=== PATIENT | male | born 1995 | race Caucasian/White ===

== ENCOUNTER 2024-06-07 02:48 | Day surgery (SDC) | payer OTHER ==
[~2024-06-07] VITALS: Ht 175.3 cm; Wt 95.5 kg
[2024-06-07] VITALS (224 sets, daily range): BP systolic 46–141; BP diastolic 24–86
--- NOTE | 2024-06-07 07:00 | NUR ---
Patient arrived to the ANR suite, identification and demographics confirmed. Patient to room 9, AAO, ambulatory, vitals obtained, ID/allergy/fall bands placed, changed into hospital gown, CHARI hose, and non-slip socks. Procedure and timeline explained for treatment and discharge. All questions answered and the patient presents no concerns at this time.
[2024-06-07] MEDS ORDERED: ALBUTEROL SULFATE 2.5 MG VIAL IN PRN (07:30)
[2024-06-07] MEDS ORDERED: CYANOCOBALAMIN 500 MCG/TAB ( B12) PO PRN (07:30)
[2024-06-07] MEDS ORDERED: PANTOPRAZOLE SODIUM Sesquihydr 40 MG/TAB PO PRN (07:30)
[2024-06-07] MEDS ORDERED: cloNIDine HCL 0.1 MG/TAB PO PRN (07:30)
[2024-06-07] MEDS ORDERED: diazePAM 5 MG/TAB PO PRN ×2 (07:30→08:30)
[2024-06-07] MEDS ORDERED: LACTATED RINGER'S 1,000 ML IV PRN ×3 (07:30→19:00)
[2024-06-07] MEDS ORDERED: SCOPOLAMINE 1.5 MG DIS TD PRN (07:30)
[2024-06-07] MEDS ORDERED: FAMOTIDINE 20 MG/TAB PO PRN (07:30)
--- NOTE | 2024-06-07 07:31 | NUR ---
Dr. Mauricio telephoned with patient intake information including usage, dose, last dose/time taken and initial vital signs. Patient history and allergies reviewed with MD. Orders received for 10 mg PO Valium and 0.2 mg PO Clonidine now. Will reassess per protocol in 1.5 hours and update MD with assessment and vitals.
[2024-06-07] MEDS ORDERED: ASCORBIC ACID 4,000 MG in SODIUM CHLORIDE 0.9% 1,000 ML IV SCH (08:00)
[2024-06-07] MEDS ORDERED: STERILE WATER FOR IRRIGATION 1,000 ML BTL IR PRN (08:35)
[2024-06-07] MEDS ORDERED: diazePAM 5 MG/TAB VT PRN (08:35)
[2024-06-07] MEDS ORDERED: cloNIDine HYDROCHLORIDE 100 MCG/ML 10 ML INJ IV PRN (08:35)
[2024-06-07] MEDS ORDERED: NALTREXONE HCL 50 MG/TAB VT PRN (08:35)
[2024-06-07] MEDS ORDERED: DiphenhydrAMINE HCL 50 MG/ML SDV IV PRN (08:35)
[2024-06-07] MEDS ORDERED: OCTREOTIDE ACETATE 100 MCG/VIAL SDV SC PRN (08:35)
[2024-06-07] MEDS ORDERED: ONDANSETRON HCl 4 MG/2 ML SDV IV PRN ×3 (08:35→19:00)
[2024-06-07] MEDS ORDERED: ROCURONIUM BROMIDE 10 MG/ML 5ML VIAL IV PRN (08:35)
[2024-06-07] MEDS ORDERED: THIAMINE HCL 100 MG/ML 2ML VIAL IV PRN (08:35)
[2024-06-07] MEDS ORDERED: LIDOCAINE HCL 1% (10MG/ML) 100 MG/10 ML MDV VT PRN ×2 (08:35)
[2024-06-07] MEDS ORDERED: MIDAZOLAM HCL 2 MG/2 ML VIAL IV PRN (08:35)
[2024-06-07] MEDS ORDERED: PROPOFOL 100 ML IV PRN (08:35)
[2024-06-07] MEDS ORDERED: DEXAMETHASONE SODIUM PHOSPHATE PF 10 MG/ML SDV IV PRN ×2 (08:35→19:00)
[2024-06-07] MEDS ORDERED: MAGNESIUM SULFATE HEPTAHYDRATE 100 ML IV PRN (08:35)
[2024-06-07] MEDS ORDERED: cloNIDine HCL 0.1 MG/TAB VT PRN (08:35)
[2024-06-07] MEDS ORDERED: SUCCINYLCHOLINE CHLORIDE 20 MG/ML 10ML VIAL IV PRN (08:35)
[2024-06-07] MEDS ORDERED: PROPOFOL 10 MG/ML 100ML VIAL IV PRN (08:35)
[2024-06-07] MEDS ORDERED: LIDOCAINE HCL 1% (10MG/ML) 100 MG/10 ML MDV IV PRN (08:35)
[2024-06-07 08:38] LABS: BASO% 0.5 % (0-3); EOS% 3.2 % (0-8); HEMATOCRIT 40.6 % (39.0-50.0); HEMOGLOBIN 14.3 g/dl (14.0-18.0); IMMATURE GRANULOCYTES 0.4 % (0.0-5.0); LYMPH% 19.1 % (15-41); MEAN CELL VOLUME 85.7 fL CALC (80.0-100.0); MEAN CORPUSCULAR HGB 30.2 pG CALC (26.0-32.0); MEAN CORPUSCULAR HGB CONC 35.2 g/dL CAL (32.0-36.0); MONO% 9.3 % (2-13); NEUT# 3.86 thou/uL (1.82-7.42); NEUT% 67.5 % (42-76); RED BLOOD COUNT 4.74 mill/uL (4.70-6.10); RED CELL DISTRI WIDTH 11.6 % (11.5-15.5)
[2024-06-07 09:02] LABS: ALBUMIN 4.6 g/dL (3.2-5.0); BILIRUBIN, TOTAL 0.7 mg/dL (0.2-1.3); POTASSIUM 4.4 mmol/l (3.5-5.1); TOTAL PROTEIN 7.2 g/dL (6.3-8.2)
--- NOTE | 2024-06-07 09:44 | NUR ---
Dr. Mauricio telephoned with reassessment and new vital signs. Reviewed initial Valium and Clonidine dose with MD. Orders received for 5 mg PO Valium now. Will reassess per protocol in 1.5 hours and update MD with assessment and vitals.
[2024-06-07] MEDS ORDERED: POTASSIUM CHLORIDE 10 MEQ/50 ML BAG IV PRN (09:50)
--- NOTE | 2024-06-07 10:20 | NUR ---
DR. RIVERS AT BEDSIDE TO ASSESS PT AND DISCUSS POC AND PROCEDURE.
--- NOTE | 2024-06-07 10:51 | NUR ---
Induction Note Patient to [facility]R procedure room. Time out performed at 1024. Patient placed on monitors, Judie hugger, bilateral wrist restraints applied for ET tube protection. Versed 5mg given IV push at 1028 Tourniquet applied to right arm Lidocaine 100mg given at 1046 IV push followed by Rocoronium 10mg at 1047 IV push and held for 90 seconds. Propofol bolus of 130mg given at 1049 IV push. Succinylcholine 100mg given IV push at 1050. Smooth intubation with 7.5 ETT. Positive CO2. Positive Auscultation for air exchange. ET tube secured with tube rayo 22 @ the lip by Dr. Mauricio. Patient placed on ventilator for spontaneous ventilation. Placed on Propofol IV drip at 1051. OG inserted. Positive air on auscultation. Positive gastric content. Stomach washed at this time.
--- NOTE | 2024-06-07 10:55 | NUR ---
OG close note Stomach washed at this time. Naltrexone 50 mg with Clonidine 0.2 mg via OG tube. OG will be clamped for 45 minutes.
--- NOTE | 2024-06-07 11:40 | NUR ---
OG open note OG open at this time. Gastric content draining into drainage bag. OG to drain for 45 minutes. Propofol will be titrated down based on patient.
--- NOTE | 2024-06-07 12:25 | NUR ---
OG close note Stomach washed at this time. Naltrexone 50 mg via OG tube. OG will be clamped for 45 minutes.
--- NOTE | 2024-06-07 13:55 | NUR ---
OG close note Stomach washed at this time. Naltrexone 50 mg with Clonidine 0.1 mg via OG tube. OG will be clamped for 45 minutes.
[2024-06-07] MEDS ORDERED: SODIUM CHLORIDE 0.9% 250 ML IV ONE (14:57)
[2024-06-07] MEDS ORDERED: PHENYLEPHRINE HCL 10 MG/ML VIAL ONE (14:57)
--- NOTE | 2024-06-07 15:25 | NUR ---
OG close note Stomach washed at this time. Naltrexone 25 mg via OG tube. OG will be clamped for 45 minutes.
--- NOTE | 2024-06-07 16:55 | NUR ---
OG close note Stomach washed at this time. Valium 10 mg with Clonidine 0.1 mg via OG tube. OG will be clamped for 20-30 minutes for closing dose.
--- NOTE | 2024-06-07 17:22 | NUR ---
Extubation note Closing medications given Benadryl 50mg IV push, Decadron 10mg IV push,Magnesium 4 grams IV, Zofran 8mg IV push, Octreotide 100mcg SC. Stomach washed out prior to extubation. Suctioned gastric content. OG removed. Patient extubated. Propofol Discontinued. Wrist restraints removed. Judie hugger Removed. See ANR Moderate sedate recovery record for further notes and assessment.
[2024-06-07] MEDS ORDERED: ePHEDrine SULFATE 50 MG/ML AMP IV SCH (17:46)
[2024-06-07] MEDS ORDERED: ePHEDrine SULFATE 50 MG/ML AMP IM SCH (17:47)
--- NOTE | 2024-06-07 18:10 | NUR ---
Patient to room 288 in no acute distress. Transfer of care to [facility], bedside report provided. 2L NC placed per orders, IVF to continue at 100ml/hr after 500ml bolus. VSS. Patient resting comfortably, no adventitious breath sounds appreciated. Bed alarm set. See chart/EMAR for procedural details and assessments. Handoff of care at the time of this note.
--- NOTE | 2024-06-07 18:14 | NUR ---
patient arrived to [facility] to anr bedside report given from momo, patient stable; vitals stable; patient to 02; personal items in anr locker; iv site clean and intact and running with LR@ 100; no s/s of distress; no complaints; call light within reach, bed inlowest postion; saftey measures in place; bed alarm activated
--- NOTE | 2024-06-07 18:19 | NUR ---
phone call placed to pt father. update provided at this time. all questions and concerns addressed.
[2024-06-07] MEDS ORDERED: LORazepam 2 MG/ML IV PRN ×2 (19:00)
[2024-06-07] MEDS ORDERED: PROMETHAZINE HCL 12.5 MG in SODIUM CHLORIDE 0.9% 50 ML IV PRN (19:00)
[2024-06-07] MEDS ORDERED: HALOPERIDOL LACTATE 5 MG/ML SDV IV PRN (19:00)
[2024-06-07] MEDS ORDERED: ACETAMINOPHEN 1,000 MG/100 ML VIAL IV PRN (19:00)
[2024-06-07] MEDS ORDERED: ACETAMINOPHEN 500 MG TAB PO PRN (19:00)
[2024-06-07] MEDS ORDERED: PROMETHAZINE HCL 25 MG in SODIUM CHLORIDE 0.9% 50 ML IV PRN (19:00)
[2024-06-07] MEDS ORDERED: KETOROLAC TROMETHAMINE 30 MG/ML SDV IV PRN (19:00)
[2024-06-07] MEDS ORDERED: PATIENT' OWN MED CONTROLLED 1 EA DOSE IV PRN (21:00)
[2024-06-07] MEDS ORDERED: clonazePAM 1 MG/TAB PO PRN (23:00)
[2024-06-07] MEDS ORDERED: cloNIDine HCL 0.1 MG/TAB PO SCH (23:00)
--- NOTE | 2024-06-08 | NUR ---
ADMINISTERED SCHEDULED MEDS PER EMAR. PT TOLERATED WELL. DENIES ANY N/V/P. PT IS ALERT TO SELF BUT DOES REQUIRE REORIENTATION TO PLACE AND TIME. PT HAS PRESENTED SIGNS OF HAVING SOME VISUAL HALLUCIANTIONS BUT WHEN REORIENTED AND REDIRECTED PT FOLLOW COMMANDS WELL. PT LAYING IN BED SUPINE. IVF RUNNING PER EMAR. VSS. NO S/S OF DISTRESS. BED ALARM ON AND SAFETY PRECAUTIONS IN PLACE.
[2024-06-08] MEDS ORDERED: clonazePAM 1 MG/TAB PO PRN ×2 (04:00→08:00)
[2024-06-08] MEDS ORDERED: NALTREXONE HCL 50 MG/TAB PO SCH (04:00)
[2024-06-08] MEDS ORDERED: cloNIDine HCL 0.1 MG/TAB PO PRN (04:00)
[2024-06-08 04:05] VITALS: BP 129/57
[2024-06-08 04:22] LABS: BASO% 0.1 % (0-3); HEMATOCRIT 34.9 % (39.0-50.0); HEMOGLOBIN 12.5 g/dl (14.0-18.0); IMMATURE GRANULOCYTES 0.2 % (0.0-5.0); LYMPH% 4.9 % (15-41); MEAN CORPUSCULAR HGB 30.8 pG CALC (26.0-32.0); MEAN CORPUSCULAR HGB CONC 35.8 g/dL CAL (32.0-36.0); MONO% 4.4 % (2-13); NEUT# 10.8 thou/uL (1.82-7.42); NEUT% 90.4 % (42-76); RED BLOOD COUNT 4.06 mill/uL (4.70-6.10); RED CELL DISTRI WIDTH 11.4 % (11.5-15.5)
[2024-06-08 04:29] LABS: ALBUMIN 4.1 g/dL (3.2-5.0); BILIRUBIN, TOTAL 0.8 mg/dL (0.2-1.3); CREATININE 0.9 mg/dL (0.7-1.3); POTASSIUM 4.2 mmol/l (3.5-5.1); TOTAL PROTEIN 6.6 g/dL (6.3-8.2)
--- NOTE | 2024-06-08 04:31 | NUR ---
ADMINSITERED SCHEDULED MEDS PER EMAR, PT TOLERATED WELL. PT IS A/OX2, RM AIR, ABLE TO AMBULATE TO BATHROOM WITH X1 ASSIST AND VOIDS W/O DIFFICULTY. PT LAYING IN BED SUPINE, IVF RUNNING PER EMAR. VSS. NO S/S OF DISTRESS. BED ALARM ON AND SAFETY PRECAUTIONS IN PLACE.
--- NOTE | 2024-06-08 06:40 | NUR ---
ROUNDED ON PT WITH LOGGER NURSE BARBER. PT IS RESTING COMFORTABLY. NO ISSUES OVERNIGHT.
[2024-06-08] MEDS ORDERED: PANTOPRAZOLE SODIUM Sesquihydr 40 MG/TAB PO SCH (08:00)
[2024-06-08] MEDS ORDERED: cloNIDine HCL 0.1 MG/TAB PO SCH (08:00)
[2024-06-08] MEDS ORDERED: ACETAMINOPHEN 325 MG/TAB PO SCH (08:00)
[2024-06-08 08:15] VITALS: BP 119/74
--- NOTE | 2024-06-08 08:26 | NUR ---
PATIENT A/O X3; ROOM AIR; BREATHING UNLABORED AND EVEN; DENIED ANY PAIN; DENIED ANY N/D/V AT THIS TIME; PATIENT AMBULATED TO BATHROOM WITH NO ASSIST; NO S/S OF DISTRESS AT THIS TIME; PATIENT TOLERATED HIS BREAKFAST AND MEDICATIONS WITH NO ISSUES; IV SITE CLEAN AND INTACT RUNNING WITH LR @100; CALL LIGHT WITHIN REACH,VERBALIZED UNDERSTANDING ON HOW TO USE, PERSONAL ITEMS IN ANR LOCKER; BED IN LOWEST POSTION; SAFETY MEASURES IN PLACE
--- NOTE | 2024-06-08 08:51 | NUR ---
PATIENT AMBULATED TO THE BATHROOM WITH NO ISSUES
[2024-06-08] MEDS ORDERED: MAGNESIUM OXIDE 400 MG/TAB PO PRN (09:00)
[2024-06-08] MEDS ORDERED: Cholecalciferol 2,000 UNIT/TAB PO PRN (09:00)
[2024-06-08] MEDS ORDERED: ACETAMINOPHEN 500 MG TAB PO PRN (09:00)
[2024-06-08] MEDS ORDERED: CLONIDINE0.1 MG PO (11:24)
[2024-06-08] MEDS ORDERED: NALTREXONE50 MG PO (11:24)
[2024-06-08] MEDS ORDERED: KLONOPIN2 MG PO (11:24)
--- NOTE | 2024-06-08 12:00 | NUR ---
PATIENT A/O X3; ROOM AIR; BREATHING UNLABORED AND EVEN; DENIED ANY PAIN; DENIED ANY N/D/V AT THIS TIME; IVSITE CLEAN AND INTACT SALINE LOCKED AT THIS TIME; PATIENT WALKING AROUND IN THE ROOM; NO S.S OF DISTRESS AT THIS TIME; TOLERATING FLUIDS WITH LIGHT FOOD; CALL LIGHT WITHIN REACH; BED IN LOWEST POSTION; SAFETY MEASURES IN PLACE
--- NOTE | 2024-06-08 13:46 | NUR ---
PATIENT TOLERATED HIS DISCHARGE MEDICATIONS; PATIENT WANTED MEDICATION TO STOP HAVING BOWEL MOVEMENTS, INFORMED PATIENT THAT HAVING A BOWEL MOVEMENT WITH THIS PROGRAMS WAS NORMAL, DOUGLAS STATES HE ONLY HAD TWO SO FAR TODAY; INFOMRED HIM OF RECOVERY AND SOMETHINGS THE BODY WILL DO ; NO COMPLAINTS
--- NOTE | 2024-06-08 14:33 | NUR ---
IV site discontinued, cath intact. No edema , no redness, voices no discomfort. Discharge instructions given. Patient verbalizes understanding of same. Discharged in stable condition via Ambulatory to Home with family. All belongings sent with pt.
== END 2024-06-08 14:30 | disposition home or self-care (01) | DRG 897 ==
LOC: ANR 02:48 → MS2 02:48 → ANR 09:00 → MS2 17:12 → ANR 06-08 09:00
PROVIDERS: ATTEND Anesthesiology
DX: F11.20 Opioid dependence, uncomplicated (principal)
CPT/HCPCS: J1100; J2060; J2354; J3475; J3490